=== PATIENT | female | born 1995 | race Caucasian/White ===

== ENCOUNTER 2019-07-13 15:02 | Outpatient (CLI) | payer BC, SELFPAY ==
--- NOTE | ~2019-07-13 | MM_ITS ---
EXAMINATION: MM screening renzo BI w david HISTORY: Screening mammogram TECHNIQUE: Bilateral rotated lateral cc views. Craniocaudal and mediolateral oblique 3-D tomosynthesi s images were obtained and synthetic 2-D images were generated. CAD analysis was submitted and interp reted. COMPARISON: No prior mammogram is available for comparison at this institution. BREAST PARENCHYMAL COMPOSITION: The breasts are heterogeneously dense, which may obscure small masses . FINDINGS: There is no evidence of suspicious mass, calcification, or architectural distortion to sugg est malignancy in either breast. There has been no suspicious interval change. IMPRESSION: 1. No mammographic evidence of malignancy. 2. Recommend routine screening mammography in one year. 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
== END 2019-07-13 15:03 | disposition home or self-care (01) ==
PROVIDERS: PCP Family Medicine
DX: Z12.31 Encounter for screening mammogram for malignant neoplasm of breast (principal)
CPT/HCPCS: 77063; 77067

== ENCOUNTER 2020-01-05 16:10 | Emergency (ER) | payer BC, SELFPAY ==
[2020-01-05 16:23] VITALS: BP 157/95; PULSE 89; RESP 16; TEMP 37.4; O2SAT 100
--- NOTE | 2020-01-05 16:25 | ED.GENADULT ---
HPI - General Adult General Chief complaint: Anxiety Stated complaint: unspecified Time Seen by Provider: 01/05/20 16:25 Source: patient and RN notes reviewed Mode of arrival: ambulatory Limitations: no limitations History of Present Illness HPI narrative: 24-year-old female presents with complains of having problems sleeping and being fatigue for the past 5-6 months. Cassy says she has a history of ADHD and anxiety, has sought therapy in the past. PMD prescribed her Amitriptyline 25mg daily on 11/19/19, in which Cassy stopped taking because she felt it made her depressed after taking it for 1-2 weeks. Cassy says she moved to [place] in Oct, 2019 but has not found a PMD there and has been working long hours, not enough time to seek care. Returned to [place] to seek care. Feels anxious and stressed at work at times, [employer]. Sleep disturbance (constant thinking and increase concentrate at night). Denies suicidal ideation, homicidal ideation, auditory and visual hallucinations. LMP 12/31/19. Denies having chest pain or shortness of breath. Denies dizziness, syncopal, head or chest trauma, altered mental status change or vision, altered speech, confusion, or seizure activity. Denies using recreational drug. The patient reports she have not been diagnosed with COVID-19. The patient reports she is not waiting for the results of a COVID-19 lab test. The patient reports she do not have fever, chills, weakness, fatigue, or myalgia. The patient reports she do not have a new or worsening cough. The patient reports she do not have any rhinorrhea, congestion, sore throat, nausea, vomiting, abdominal pain, and diarrhea. Tolerating po intake well. Denies recent traveling. Denies concerns for COVID-19 or exposures been home with limited outdoor exposure except for essential household needs, work, and return home. At this time, patient is not suspected of having COVID-19. Some parts of this dictation were generated by voice recognition software and may contain typographical and/or grammatical inaccuracies. Related Data Home Medications Medication Instructions Recorded Confirmed norgestimate-ethinyl estradiol 1 tablet PO DAILY 11/19/19 Allergies Allergy/AdvReac Type Severity Reaction Status Date / Time No Known Drug Allergies Allergy Mild unknown Verified 07/13/19 09:10 Review of Systems Review of Systems: Narrative: CONSTITUTIONAL: Denies fever, chills, sweats. EYES: Denies visual changes, redness, discharge. ENT: Denies rhinorrhea, congestion, sore throat, otalgia. CARDIOVASCULAR: Denies chest pain, palpitations, edema. RESPIRATORY: Denies dyspnea, wheezing, cough. GASTROINTESTINAL: Denies abdominal pain, nausea, vomiting, diarrhea. GENITOURINARY: Denies dysuria, hematuria, abnormal discharge. SKIN: Denies rash or itching. MUSCULOSKELETAL: Denies acute back pain, joint pain, or myalgia. NEUROLOGIC: Denies numbness or focal weakness. PSYCHIATRIC: Complains of anxiety, having difficulty sleeping. Denies being depressed, suicidal, or homicidal. All other systems reviewed are negative, except as documented in HPI and below. [facility] Past Medical History Medical History (Updated 01/06/20 @ 00:00 by [facility]) Anxiety Asthma Exercise induced bronchospasm Ovarian dysfunction Psychophysiologic insomnia Surgical History Surgical History (Updated 01/05/20 @ 16:45 by ROME Lopez) History of breast augmentation 08/2019 History of nasal surgery History of tonsillectomy Family History Family History Mother Depression Father Hypertension Family history of diabetes mellitus in first degree relative Social History Social History (Updated 01/05/20 @ 16:45 by ROME Lopez) Social History: Single Smoking status: Never smoker Tobacco type: cigarettes Second hand tobacco smoke exposure: No Alcohol intake: n
--- NOTE | 2020-01-05 17:03 | PC.NURSE ---
B/P rechecked at discharge and was 135/79
== END 2020-01-05 16:57 | disposition home or self-care (01) ==
PROVIDERS: Emergency Provider Nurse Practitioner Family; PCP Family Medicine
DX: F41.9 Anxiety disorder, unspecified (principal)
CPT/HCPCS: 99213; G0463